=== PATIENT | female | born 1985 | race Caucasian/White ===

== ENCOUNTER 2024-11-20 09:44 | Observation (INO) | payer OTHER ==
[2024-11-20] MEDS ORDERED: Sodium Chloride 0.9% 10 ML Syringe FLUSH PRN (10:37)
[2024-11-20] MEDS ORDERED: Terbutaline 1 MG/ML SDV IV ONE (10:37)
[2024-11-20] MEDS ORDERED: fentaNYL 100 MCG/2 ML SDV IVPUSH ONE (10:40)
[2024-11-20] MEDS ORDERED: Naloxone 2 MG/2 ML Syringe IVPUSH PRN (10:40)
[2024-11-20] MEDS: Nalbuphine HCl 10 MG/ 1ML Amp IM ONE (12:08)
[2024-11-20] MEDS: Mineral Oil 30 ML UD Cup ONE (12:12)
[2024-11-20] MEDS: Terbutaline 1 MG/ML SDV IV ONE (12:16)
[2024-11-20] MEDS: Lactated Ringers 1,000 ML IV SCH (12:33)
[2024-11-20] MEDS: ePHEDrine 50 MG/ML SDV IVPUSH ONE (12:38)
[2024-11-20] MEDS: Ondansetron 4 MG/2 ML SDV IVPUSH ONE (15:51)
[2024-11-20] MEDS ORDERED: Sodium Chloride 0.9% 10 ML Syringe FLUSH SCH (21:00)
== END 2024-11-20 16:13 ==
LOC: DL.OBCHECK 09:44 → DL.OB 10:38
PROVIDERS: ADMIT Family Medicine; ATTEND Family Medicine
DX: O32.1XX0 Maternal care for breech presentation, not applicable or unspecified (principal); Z3A.37 37 weeks gestation of pregnancy
CPT/HCPCS: 59025; 59412; 96372; 96374; 96375; A9270-GY; G0378; J2300; J2405; J3490; J7120

== ENCOUNTER 2024-12-02 10:08 | Inpatient (IN) | payer OTHER ==
[2024-12-02] MEDS: Lactated Ringers 1,000 ML IV SCH (10:10)
[2024-12-02] MEDS ORDERED: Tranexamic Acid 1,000 MG in Sodium Chloride 0.9% 100 ML IV PRN (10:24)
[2024-12-02] MEDS ORDERED: Carboprost Tromethamine 250 MCG/1 ML Amp IM PRN (10:24)
[2024-12-02] MEDS ORDERED: Sodium Chloride 0.9% 10 ML Syringe FLUSH PRN (10:24)
[2024-12-02] MEDS ORDERED: Oxytocin 10 Units/1 ML SDV IM PRN (10:24)
[2024-12-02] MEDS ORDERED: Methylergonovine 0.2 MG Tab PO PRN (10:24)
[2024-12-02] MEDS: ceFAZolin 2 GM Vial IVPUSH ONE (10:24)
[2024-12-02] MEDS ORDERED: Lactated Ringers 1,000 ML IV SCH ×2 (10:30→13:00)
[2024-12-02 10:56] LABS: BASOPHILS PERCENT AUTO 0.3 % (0.0-1.0); EOSINOPHILS PERCENT AUTO 0.1 % (1.0-3.0); HEMATOCRIT 45.5 % (37.0-47.0); HEMOGLOBIN 15.3 g/dL (12.0-16.0); LYMPHOCYTES PERCENT AUTO 19.7 % (20.5-50.1); MEAN CORPUSCULAR HEMOGLOBIN 31.7 pg (27.0-34.0); MEAN CORPUSCULAR HGB CONC 33.6 g/dL (33.0-35.0); MEAN CORPUSCULAR VOLUME 94.2 fL (80-100); MONOCYTES PERCENT AUTO 11.6 % (2-8); NEUTROPHILS PERCENT AUTO 68.3 % (42.2-75.2); PLATELET COUNT,PLT 89 10^3/uL (150-450); RED BLOOD CELL COUNT 4.83 10^6/uL (4.2-5.4); WHITE BLOOD CELL COUNT,WBC 8.7 10^3/uL (5.0-10.0)
[2024-12-02 11:10] LABS: CREATININE 0.64 mg/dL (0.55-1.02); EST CRCL DRUG DOSING (CG) 106.19 mL/min; URIC ACID 4.3 mg/dL (2.6-6.0)
[2024-12-02] MEDS ORDERED: Dexamethasone 4 MG/ML SDV ONE (11:30)
[2024-12-02] MEDS ORDERED: Ondansetron 4 MG/2 ML SDV ONE (11:30)
[2024-12-02] MEDS ORDERED: Oxytocin 10 Units/1 ML SDV ONE (11:30)
[2024-12-02] MEDS ORDERED: ceFAZolin 2 GM Vial ONE (11:30)
[2024-12-02] MEDS ORDERED: Ketorolac 30 MG/ML SDV ONE (11:30)
[2024-12-02] MEDS ORDERED: Tranexamic Acid 1,000 MG/10 ML Vial ONE (11:30)
[2024-12-02] MEDS ORDERED: Phenylephrine 1% 10 MG/ML SDV ONE (11:35)
[2024-12-02 11:41] LABS: APPEARANCE,URINE CLEAR (CLEAR); BILIRUBIN,URINE NEGATIVE (NEGATIVE); COLOR,URINE YELLOW (YELLOW); GLUCOSE,URINE NEGATIVE (NEGATIVE); KETONES,URINE 15 (NEGATIVE); LEUKOCYTE ESTERASE,URINE NEGATIVE (NEGATIVE); NITRITE,URINE NEGATIVE (NEGATIVE); OCCULT BLOOD,URINE NEGATIVE (NEGATIVE); PROTEIN,URINE NEGATIVE (NEGATIVE); UROBILINOGEN,URINE 0.2 mg/dL (0.2-1.0)
[2024-12-02 11:54] LABS: CREATININE,URINE RAND 27.95 mg/dL (No establ ref range); PROTEIN,URINE RANDOM < 6.0 mg/dL (0.0-11.9)
[2024-12-02] MEDS ORDERED: Acetaminophen 325 MG Tab PO PRN (12:57)
[2024-12-02] MEDS ORDERED: diphenhydrAMINE 50 MG/ML SDV IVPUSH PRN (12:57)
[2024-12-02] MEDS ORDERED: Naloxone 2 MG/2 ML Syringe IVPUSH PRN (12:57)
[2024-12-02] MEDS ORDERED: Witch Hazel Medicated Pads 100/Jar TOP PRN (12:57)
[2024-12-02] MEDS ORDERED: Misoprostol 100 MCG Tab RECTAL PRN (12:57)
[2024-12-02] MEDS ORDERED: Hydrocortisone 2.5% Crm 30 GM Tube TOP PRN (12:57)
[2024-12-02] MEDS ORDERED: ePHEDrine 50 MG/ML SDV IVPUSH PRN (12:57)
[2024-12-02] MEDS ORDERED: Acetaminophen/oxyCODONE 325-5 MG Tab PO PRN (12:57)
[2024-12-02] MEDS ORDERED: Methylergonovine 0.2 MG/1 ML Amp IM PRN (12:57)
[2024-12-02] MEDS: Oxytocin/Lactated Ringers 30 UNIT/500 ML BAG IV SCH (13:00)
[2024-12-02] MEDS: Labetalol 20 MG/4 ML Syringe IVPUSH ONE ×2 (14:16→15:49)
[2024-12-02] MEDS: Ondansetron 4 MG/2 ML SDV IVPUSH PRN (16:00)
[2024-12-02] MEDS: Labetalol 100 MG Tab PO ONE (16:34)
[2024-12-02] MEDS: Simethicone 80 MG Tab.Chew PO SCH (16:41)
[2024-12-02] MEDS: Promethazine 25 MG/ML SDV IM ONE (16:52)
[2024-12-02] MEDS: Ibuprofen 800 MG Tab PO SCH (17:23)
[2024-12-02] MEDS: Ketorolac 30 MG/ML SDV IVPUSH SCH ×2 (17:24→18:07)
[2024-12-02] MEDS: Sodium Chloride 0.9% 10 ML Syringe FLUSH SCH (21:04)
[2024-12-02] MEDS: Labetalol 100 MG Tab PO SCH (21:04)
[2024-12-02] MEDS: Docusate Sodium 100 MG Cap PO PRN (21:18)
[2024-12-03 06:16] LABS: HEMATOCRIT 30.2 % (37.0-47.0); HEMOGLOBIN 9.8 g/dL (12.0-16.0); MEAN CORPUSCULAR HEMOGLOBIN 31.4 pg (27.0-34.0); MEAN CORPUSCULAR HGB CONC 32.5 g/dL (33.0-35.0); MEAN CORPUSCULAR VOLUME 96.8 fL (80-100); RED BLOOD CELL COUNT 3.12 10^6/uL (4.2-5.4); WHITE BLOOD CELL COUNT,WBC 16.3 10^3/uL (5.0-10.0)
[2024-12-03] MEDS: Prenatal Multivitamin with Calcium/Folic Acid/Iron Tab PO SCH (09:03)
[2024-12-03] MEDS: Ferrous Sulfate 325 MG Tab PO SCH (09:23)
[2024-12-03] MEDS: Ibuprofen 800 MG Tab PO SCH (13:33)
[2024-12-03] MEDS: Acetaminophen/oxyCODONE 325-5 MG Tab PO PRN (20:50)
[2024-12-04] MEDS: Ferrous Sulfate 325 MG Tab PO SCH (08:28)
[2024-12-05] MEDS: Furosemide 40 MG Tab PO ONE (07:02)
[2024-12-05 10:33] LABS: BASOPHILS PERCENT AUTO 0.3 % (0.0-1.0); EOSINOPHILS PERCENT AUTO 1.4 % (1.0-3.0); HEMATOCRIT 29.1 % (37.0-47.0); HEMOGLOBIN 9.2 g/dL (12.0-16.0); MEAN CORPUSCULAR HEMOGLOBIN 31.2 pg (27.0-34.0); MEAN CORPUSCULAR HGB CONC 31.6 g/dL (33.0-35.0); MEAN CORPUSCULAR VOLUME 98.6 fL (80-100); NEUTROPHILS PERCENT AUTO 76.3 % (42.2-75.2); PLATELET COUNT,PLT 167 10^3/uL (150-450); RED BLOOD CELL COUNT 2.95 10^6/uL (4.2-5.4); WHITE BLOOD CELL COUNT,WBC 9.2 10^3/uL (5.0-10.0)
[2024-12-05 10:53] LABS: A/G RATIO 0.75; ALBUMIN 2.4 g/dL (3.4-5.0); ANION GAP 11.9 mEq/L (7-13); BILIRUBIN TOTAL 0.4 mg/dL (0.2-1.0); BUN/CREATININE RATIO 14.3 (No establ ref range); CREATININE 0.7 mg/dL (0.55-1.02); EST CRCL DRUG DOSING (CG) 97.09 mL/min; POTASSIUM,K 3.9 mmol/L (3.5-5.1); PROTEIN TOTAL,TP 5.6 g/dL (6.4-8.2)
[2024-12-05] MEDS ORDERED: Ketorolac 30 MG/ML SDV IVPUSH ONE (14:28)
[2024-12-05] MEDS ORDERED: Oxytocin/Normal Saline 30 UNIT/500 ML BAG IV ONE (14:28)
[2024-12-05] MEDS ORDERED: Ondansetron 4 MG/2 ML SDV IV ONE (14:28)
[2024-12-05] MEDS ORDERED: Phenylephrine 1% 10 MG/ML SDV IV ONE (14:28)
[2024-12-05] MEDS ORDERED: Morphine PF 10 MG/10 ML SDV EPIDUR ONE (14:28)
[2024-12-05] MEDS ORDERED: Ropivacaine 100 ML EPIDUR ONE (14:28)
== END 2024-12-05 14:29 | disposition home or self-care (01) | DRG 788 ==
LOC: DL.OB 10:08 → OBSVTOIN 12:10 → DL.OB 12:10
PROVIDERS: ADMIT Family Medicine; ATTEND Family Medicine
PROC: 10D00Z1 Extraction of Products of Conception, Low, Open Approach (ICD-10-PCS; principal; 2024-12-02 12:00)
DX: O32.1XX0 Maternal care for breech presentation, not applicable or unspecified (principal); O99.284 Endocrine, nutritional and metabolic diseases complicating childbirth; E03.9 Hypothyroidism, unspecified; Z3A.39 39 weeks gestation of pregnancy; Z37.0 Single live birth; Z79.82 Long term (current) use of aspirin; Z79.899 Other long term (current) drug therapy; O90.81 Anemia of the puerperium; D64.89 Other specified anemias; O14.15 Severe pre-eclampsia, complicating the puerperium
CPT/HCPCS: 36415; 51702; 59025; 76815; 80053; 81003; 82565; 82570; 83615; 84156; 84450; 84460; 84520; 84550; 85025; 85027; 86850; 86900; 86901; A9270-GY; J1885; J1920; J2405; J2550; J2590; J7120